=== PATIENT | female | born 1930 | race Asian ===

== ENCOUNTER 2022-05-02 05:00 | Day surgery (SDC) | payer OTHER, MEDICAID ==
[~2022-05-02] VITALS: Ht 152.4 cm; Wt 54.4 kg
[~2022-05-02 05:00] MED LIST: ACET325T PO; ALLO100T PO; AMLO5TAB4 PO; BIMA2.5D5 OP; FERR-69 PO; FERR210T PO; FOLI0.8T41 PO; GLUC1KIT IJ; LEVO25TA7 PO; LOSA50TA3 PO; MEGE20TA3 PO; MULT-1089 PO; PRO40 PO; SITA100T11 PO; SODI650T PO; VITD2000 PO
[2022-05-02] MEDS ORDERED: fentaNYL CITRATE/PF 100 MCG/2 ML AMP ONE (06:41)
[2022-05-02] MEDS ORDERED: MIDAZOLAM HCL 5 MG/5 ML VIAL ONE (06:41)
[2022-05-02 16:45] VITALS: BP_SYST 127
== END 2022-05-02 09:40 | disposition home or self-care (01) ==
LOC: SDS 05:00 → SMU 05:00 → SDS 09:40
PROVIDERS: ATTEND Internal Medicine Gastroenterology
DX: D50.9 Iron deficiency anemia, unspecified (principal); K31.819 Angiodysplasia of stomach and duodenum without bleeding; K92.1 Melena; K21.00 Gastro-esophageal reflux disease with esophagitis, without bleeding; K29.50 Unspecified chronic gastritis without bleeding; Z20.822 Contact with and (suspected) exposure to COVID-19; Z79.899 Other long term (current) drug therapy
CPT/HCPCS: 82962; 36415; 43255; 43239; 88305; 88313; 99152; 87426; G0378; J2250; J3010